=== PATIENT | male | born 1970 | race Caucasian/White ===

== ENCOUNTER 2017-02-16 09:03 | Emergency (ER) | payer OTHER ==
[2017-02-16 09:19] VITALS: BP 150/98; PULSE 86; RESP 18; TEMP 98.2; O2SAT 100
== END 2017-02-16 09:40 | disposition home or self-care (01) | DRG 153 ==
LOC: ED 09:03
DX: J02.0 Streptococcal pharyngitis (principal)
CPT/HCPCS: 87430; 99282; 99283